=== PATIENT | female | born 1950 | race Caucasian/White ===

== ENCOUNTER → 2022-09-01 13:52 | Outpatient (CLI) | payer MEDICARE, OTHER, SELFPAY ==
[2022-09-01 14:52] LABS: Cholesterol 315 mg/dL (140-199); HDL Cholesterol 109 mg/dL (40-60); LDL Cholesterol Calculated 184 mg/dL (<100); Triglycerides 108 mg/dL (35-150)
== END ==
PROVIDERS: PCP Family Medicine; Referring Provider Family Medicine; Visit Provider Family Medicine
DX: Z76.89 Persons encountering health services in other specified circumstances (principal); Z12.11 Encounter for screening for malignant neoplasm of colon; Z13.220 Encounter for screening for lipoid disorders; E66.3 Overweight; E78.00 Pure hypercholesterolemia, unspecified
CPT/HCPCS: 36415; 80061

== ENCOUNTER → 2023-07-16 09:45 | Outpatient (CLI) | payer MEDICARE, OTHER, SELFPAY ==
[2023-07-19 09:22] LABS: Fecal Immunochemical Test Negative (Negative)
== END ==
PROVIDERS: PCP Family Medicine; Referring Provider Family Medicine; Visit Provider Family Medicine
DX: Z12.11 Encounter for screening for malignant neoplasm of colon (principal); Z76.89 Persons encountering health services in other specified circumstances
CPT/HCPCS: 82274

== ENCOUNTER 2025-07-12 10:50 | Emergency (ER) | payer MEDICARE, OTHER, SELFPAY ==
[2025-07-12] VITALS (38 sets, daily range): BP systolic 133–194; BP diastolic 67–99; PULSE 80–109; RESP 10–30; TEMP 37.2; O2SAT 98–100; BMI 27.3
--- NOTE | 2025-07-12 11:09 | EKG_ITS ---
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
--- NOTE | 2025-07-12 11:24 | DI.RAD.S_ITS ---
PROCEDURE: XR CHEST 1V INDICATIONS: altered mental status TECHNIQUE: One view of the chest was acquired. COMPARISON: None. FINDINGS: Surgical changes and devices: None. Lungs and pleura: Lungs are clear. No pleural effusions or pneumothorax. Mediastinum: Mediastinal contours appear normal. Heart size is normal. Bones and chest wall: No suspicious bony lesions. Overlying soft tissues appear unremarkable. IMPRESSION: No acute pulmonary process. Dictated by: Dena Fink M.D. on 07/12/2025 at 12:19 Approved by: Dena Fink M.D. on 07/12/2025 at 12:19
[2025-07-12 11:48] LABS: Add Manual Diff / Slide Review NO; Hematocrit 42.6 % (36-46); Hemoglobin 14.4 g/dL (12.0-16.0); Lymphocytes Absolute Auto 500 /uL (1100-4500); Mean Corpuscular HGB Conc 33.9 % (30-36); Mean Corpuscular Hemoglobin 36.3 PG (26-34); Mean Corpuscular Volume 107.1 fL (80-100); Platelet Count 120 X10^3/uL (150-400)
[2025-07-12 11:59] LABS: Lactate (Lactic Acid) 2.0 mmol/L (0.7-2.1)
[2025-07-12 12:00] LABS: Alanine Aminotransferase 111 IU/L (<35); Albumin 4.6 g/dL (3.5-5.0); Albumin Globulin Ratio 1.4 (1.0-2.8); Alkaline Phosphatase 104 U/L (38-126); Blood Urea Nitrogen 10 mg/dL (7-17); Calcium 9.2 mg/dL (8.4-10.2); Carbon Dioxide 28 mmol/L (22-32); Chloride 97 mmol/L (98-107); Creatine Kinase 69 U/L (30-135); Estimated Glomerular Filt Rate > 60 mL/min (>60); Ethanol (ETOH) < 10 mg/dL (<10); Globulin 3.3 g/dL (1.7-4.1); Glucose 107 mg/dL (70-99); HEMOLYSIS 21 (0-50); Potassium 3.8 mmol/L (3.4-5.1); Sodium 137 mmol/L (137-145); Total Protein 7.9 g/dL (6.3-8.2)
--- NOTE | 2025-07-12 12:06 | ED_ITS ---
HPI - Alcohol General Chief Complaint: Toxicology Problem Stated Complaint: Shaky, Headache , Off balance this morning Time Seen by Provider: 07/12/25 10:59 Source: patient and family Mode of arrival: Family Vehicle History of Present Illness HPI narrative: Patient is a 74-year-old female history of anxiety and alcohol use, brought in today by grandson for balance issues. He reports that she typically drives gets around easily has had ongoing memory problems but typically does not have any balance problems. Today he noticed that she was very off balance. No trauma. She is having pretty significant headache this morning she took 2 Tylenol for it. She does admit to drinking alcohol last night but that is not new for her she does not feel like she is hung over. No nausea no vomiting. No chest pain no abdominal Related Data Previous Rx's ?Medication ?Instructions ?Recorded magnesium citrate 100 mg tablet 100 mg PO DAILY #90 ta bs 03/21/24 citalopram 10 mg tablet 10 mg PO DAILY #90 tabs 03/28 Allergies Allergy/AdvReac Type Severity Reaction Status Date / Time aspirin Allergy Severe Anaphylaxis Verified 07/12/25 11:15 cat dander Allergy Intermediate Difficulty Verified 07/12/25 11:15 Breathing Patient History Medical History (Updated 07/12/25 @ 15:12 by Adelita Cortez DO) Generalized anxiety disorder with panic attacks Hypercholesteremia BMI 28.0-28.9,adult Elevated blood pressure reading in office without diagnosis of hypertension Social History Smoking Status: Former smoker Tobacco: How many years used: 20 alcohol intake: current (2 drinks per day ) substance use type: does not use Smoking Status: Former smoker tobacco type: cigarettes Alcohol type: hard liquor Exam Initial Vital Signs Initial Vital Signs: Vital Signs Pulse Rate 91 H 07/12/25 11:00 Blood Pressure 194/99 H 07/12/25 11:00 Pulse Oximetry 99 07/12/25 11:00 GENERAL: Alert pleasant 74-year-old female HEENT: Head atraumatic,EOMI, pupils reactive, face symmetric, moist mucous membranes CARDIOVASCULAR: Regular rate and rhythm without murmurs, rubs or gallops. RESPIRATORY: Breath sounds equal bilaterally, no wheezes rales or rhonchi. ABDOMEN: Soft, nontender. Normoactive bowel sounds all 4 quadrants. No guarding or rebound. EXTREMITIES: Normal range of motion, no clubbing or edema. Neurovascularly intact NEUROLOGICAL: Alert and oriented x1.Normal gait and speech. Cranial nerves II through XII grossly intact. Good zkevkr-wa-xwrl, good zhnf-rx-bhos, strength equal bilaterally, no dysarthria or aphasia, sensation in tact to soft touch bilaterally, no visual changes, no facial droop SKIN: Warm, dry, no laceration, no petechiae, no rashes or lesions. Scores GCS Aline coma scale eye opening: Spontaneous [place] coma scale verbal response: Orientated Aline coma scale motor response: Obey commands Aline coma scale total score: 15 NIH Stroke Scale Level of Conciousness: Alert, keenly responsive Ask month/age: Answers one question correctly, intubated follow commands Open/close eyes, close hand: Performs both tasks correctly Best gaze horizontal: Normal Visual coronado: No visual loss Facial palsy: Normal symetrical movement Left arm drift: No drift for full 10 sec Right arm drift: No drift for full 10 sec Left leg drift: No drift for full 5 sec Right leg drift: No drift for full 5 sec Limb ataxia: Absent Sensory on face/arms/legs: Normal, no sensory loss Best language: No aphasia, normal Dysarthria: Normal Extinction or inattention: No abnormality Total NIH Stroke scale score: 1 Course Orders Ordered: ED Orders 07/12/25 11:17 Complete Blood Count AUTO DIFF Stat Comprehensive Metabolic Panel Stat Ethanol (ETOH) Stat Lactate (Lactic Acid) Stat PTT Partial Thromboplastin Chandu Stat Procalcitonin Stat Prothrombin Time INR Stat Troponin & CK Cardiac Panel Stat 07/12/25 11:24 XR chest 1V Stat EKG-12 Lead Stat 07/12/25 12:14 CT angio head and neck Stat CT head/brain wo con Stat 07/12/25 12:20 UA Complete [Urinalysis and Microscopic] Stat Urine Drug Screen, Rapid Stat Discontinued Medications Nicardipine HCl 25 mg/ Sodium (Chloride) 250 mls @ 50 mls/hr IV TITRATE KSENIA; Protocol Last Titration: 07/12/25 14:49 Dose: 0 mg/hr, 0 mls/hr Documented By: Titration: 07/12/25 14:38 Dose: 2.5 mg/hr, 25 mls/hr Documented By: Titration: 07/12/25 14:29 Dose: 5 mg/hr, 50 mls/hr Documented By: Titration: 07/12/25 14:04 Dose: 0 mg/hr, 0 mls/hr Documented By: Admin: 07/12/25 14:00 Dose: 5 mg/hr, 50 mls/hr Documented By: OTILIA Labetalol HCl (Labetalol 20 Mg/4 Ml Syringe) 5 mg IV NOW ONE Stop: 07/12/25 13:19 Last Admin: 07/12/25 13:26 Dose: 5 mg Documented By: REED Vital Signs Vital signs: Vital Signs - 8 hr 07/12/25 11:00 07/12/25 11:00 07/12/25 11:15 Temperature 98.9 F Pulse Rate 91 H 92 H Respiratory Rate 22 Blood Pressure 194/99 H 194/99 H Pulse Oximetry 99 98 Oxygen Delivery Method Room Air 07/12/25 11:20 07/12/25 11:20 07/12/25 11:30 Temperature Pulse Rate 88 86 Respiratory Rate 16 25 H Blood Pressure 178/91 H Pulse Oximetry 99 98 Oxygen Delivery Method 07/12/25 11:30 07/12/25 11:40 07/12/25 11:40 Temperature Pulse Rate 82 Respiratory Rate 18 Blood Pressure 174/87 H 163/81 H Pulse Oximetry 99 Oxygen Delivery Method 07/12/25 11:50 07/12/25 11:50 07/12/25 12:00 Temperature Pulse Rate 82 83 Respiratory Rate 13 18 Blood Pressure 161/78 H Pulse Oximetry 99 98 Oxygen Delivery Method 07/12/25 12:00 07/12/25 12:11 07/12/25 12:11 Temperature Pulse Rate 109 H Respiratory Rate 30 H Blood Pressure 160/78 H 183/91 H Pulse Oximetry 98 Oxygen Delivery Method 07/12/25 12:38 07/12/25 12:38 07/12/25 12:41 Temperature Pulse Rate 90 Respiratory Rate 19 Blood Pressure 191/85 H 191/79 H Pulse Oximetry 99 Oxygen Delivery Method 07/12/25 12:41 07/12/25 12:50 07/12/25 12:50 Temperature Pulse Rate 88 86 Respiratory Rate 11 L 13 Blood Pressure 181/78 H Pulse Oximetry 100 100 Oxygen Delivery Method 07/12/25 13:00 07/12/25 13:00 07/12/25 13:10 Temperature Pulse Rate 84 85 Respiratory Rate 15 14 Blood Pressure 168/77 H Pulse Oximetry 100 100 Oxygen Delivery Method 07/12/25 13:10 07/12/25 13:20 07/12/25 13:20 Temperature Pulse Rate 93 H Respiratory Rate 22 Blood Pressure 162/75 H 181/89 H Pulse Oximetry 100 Oxygen Delivery Method 07/12/25 13:26 07/12/25 13:30 07/12/25 13:30 Temperature Pulse Rate 91 H 90 Respiratory Rate 24 Blood Pressure 181/89 H 184/82 H Pulse Oximetry 100 Oxygen Delivery Method 07/12/25 13:31 07/12/25 13:31 07/12/25 13:41 Temperature Pulse Rate 90 84 Respiratory Rate 20 25 H Blood Pressure 187/84 H Pulse Oximetry 100 100 Oxygen Delivery Method 07/12/25 13:41 07/12/25 13:45 07/12/25 13:45 Temperature Pulse Rate 84 Respiratory Rate 23 Blood Pressure 190/76 H 183/81 H Pulse Oximetry 100 Oxygen Delivery Method 07/12/25 13:50 07/12/25 13:50 07/12/25 14:00 Temperature Pulse Rate 83 83 Respiratory Rate 13 12 Blood Pressure 182/82 H Pulse Oximetry 100 100 Oxygen Delivery Method 07/12/25 14:00 07/12/25 14:10 07/12/25 14:10 Temperature Pulse Rate 84 Respiratory Rate 11 L Blood Pressure 167/81 H 171/83 H Pulse Oximetry 100 Oxygen Delivery Method 07/12/25 14:21 07/12/25 14:21 07/12/25 14:30 Temperature Pulse Rate 86 89 Respiratory Rate 18 12 Blood Pressure 178/79 H Pulse Oximetry 100 100 Oxygen Delivery Method 07/12/25 14:30 07/12/25 14:35 07/12/25 14:35 Temperature Pulse Rate 89 Respiratory Rate 10 L Blood Pressure 160/74 H 146/73 H Pulse Oximetry 100 Oxygen Delivery Method 07/12/25 14:40 07/12/25 14:40 07/12/25 14:45 Temperature Pulse Rate 91 H 90 Respiratory Rate 11 L Blood Pressure 147/71 H Pulse Oximetry 100 100 Oxygen Delivery Method 07/12/25 14:45 07/12/25 14:50 07/12/25 14:50 Temperature Pulse Rate 85 Respiratory Rate 12 Blood Pressure 137/70 133/67 Pulse Oximetry 100 Oxygen Delivery Method 07/12/25 14:55 07/12/25 14:55 07/12/25 15:00 Temperature Pulse Rate 84 80 Respiratory Rate 10 L 11 L Blood Pressure 153/72 H Pulse Oximetry 100 100 Oxygen Delivery Method 07/12/25 15:00 07/12/25 15:05 07/12/25 15:05 Temperature Pulse Rate 82 Respiratory Rate 11 L Blood Pressure 144/71 H 144/71 H Pulse Oximetry 100 Oxygen Delivery Method 07/12/25 15:10 07/12/25 15:10 07/12/25 15:18 Temperature Pulse Rate 81 Respiratory Rate 12 Blood Pressure 153/75 H 156/73 H Pulse Oximetry 100 Oxygen Delivery Method 07/12/25 15:18 07/12/25 15:20 07/12/25 15:20 Temperature Pulse Rate 89 85 Respiratory Rate 21 12 Blood Pressure 157/74 H Pulse Oximetry 100 100 Oxygen Delivery Method 07/12/25 15:25 07/12/25 15:25 07/12/25 15:30 Temperature Pulse Rate 84 85 Respiratory Rate 13 15 Blood Pressure 159/77 H Pulse Oximetry 100 100 Oxygen Delivery Method 07/12/25 15:30 07/12/25 15:35 07/12/25 15:35 Temperature Pulse Rate 86 Respiratory Rate 16 Blood Pressure 162/79 H 162/79 H Pulse Oximetry 100 Oxygen Delivery Method 07/12/25 15:40 07/12/25 15:40 Temperature Pulse Rate 85 Respiratory Rate 11 L Blood Pressure 156/78 H Pulse Oximetry 100 Oxygen Delivery Method MDM - Alcohol Lab Data 07/12/25 11:17 07/12/25 11:17 Labs: Lab Results 07/12/25 07/12/25 07/12/25 Range/Units 10:59 11:17 12:20 WBC 3.7 L (4.5-11.0) X10^3/uL RBC 3.98 L (4.0-5.2) X10^6/uL Hgb 14.4 (12.0-16.0) g/dL Hct 42.6 (36-46) % MCV 107.1 H (80-100) fL MCH 36.3 H (26-34) PG MCHC 33.9 (30-36) % RDW 15.2 H (11.6-14.8) % Plt Count 120 L (150-400) X10^3/uL Neut % (Auto) 77.1 H (50-75) % Lymph % (Auto) 13.6 L (25-40) % Patrick % (Auto) 7.9 (3-14) % Eos % (Auto) 0.8 L (2-4) % Baso % (Auto) 0.6 (0-2) % Neut # (Auto) 2800 (5993-8997) /uL Lymph # (Auto) 500 L (7108-6179) /uL Patrick # (Auto) 300 (0-900) /uL Eos # (Auto) 0 (0-450) /uL Baso # (Auto) 0 (0-100) /uL PT 12.4 (9.4-12.5) SECONDS INR 1.1 (0.9-1.3) APTT 28 (25.1-36.5) SECONDS Sodium 137 (137-145) mmol/L Potassium 3.8 (3.4-5.1) mmol/L Chloride 97 L (98-107) mmol/L Carbon Dioxide 28 (22-32) mmol/L BUN 10 (7-17) mg/dL Creatinine 0.52 (0.52-1.04) mg/dL Estimated GFR > 60 (>60) mL/min BUN/Creatinine Ratio 19.2 (6-22) Glucose 107 H (70-99) mg/dL POC Whole Bld Glucose 96 (70-99) mg/dL Lactate 2.0 (0.7-2.1) mmol/L Calcium 9.2 (8.4-10.2) mg/dL Total Bilirubin 2.3 H (0.2-1.3) mg/dL AST 210 H (14-36) IU/L ALT 111 H (<35) IU/L Alkaline Phosphatase 104 (38-126) U/L Total Creatine Kinase 69 (30-135) U/L Troponin I < 0.012 (0.01-0.034) ng/mL Total Protein 7.9 (6.3-8.2) g/dL Albumin 4.6 (3.5-5.0) g/dL Globulin 3.3 (1.7-4.1) g/dL Albumin/Globulin Ratio 1.4 (1.0-2.8) Procalcitonin 0.090 (<0.5) ng/mL Urine Color Yellow Urine Appearance Clear Urine pH 7.5 (4.5-8.0) Ur Specific [place] 1.015 (1.000-1.035) Urine Protein Negative (Negative) Urine Glucose (UA) Negative (Negative) g/dL Urine Ketones 1+ H (NEGATIVE) Urine Occult Blood Negative (Negative) Urine Nitrate Negative (Negative) Urine Bilirubin Negative (NEGATIVE) Urine Urobilinogen 2.0 H (0.2) E.U./dL Ur Leukocyte Esterase Trace H (NEGATIVE) Urine RBC 0-1/hpf (0-5/HPF) Urine WBC 1-5/hpf (0-5/HPF) Ur Squamous Epith Cells 0-1 /hpf (0-5/HPF) Urine Bacteria Occasional (0-1) (None) Ur Culture Indicated? Cult not indicated Vol Urine Centrifuged 10ml (spun) U Opiates 300ng/mL cut Negative (Negative) Ur Oxycodone Screen Negative (Negative) Urine Methadone Screen Negative (Negative) Ur Barbiturates Screen Negative (Negative) U Tricyclic Antidepress Negative (Negative) Ur Phencyclidine Scrn Negative (Negative) Ur Amphetamines Screen Negative (Negative) U Methamphetamines Scrn Negative (Negative) Ur MDMA Scrn (Ecstasy) Negative (Negative) U Benzodiazepines Scrn Negative (Negative) Urine Cocaine Screen Negative (Negative) U Marijuana (THC) Screen Negative (Negative) Urine Specific [place] (Normal) Ethyl Alcohol < 10 (<10) mg/dL Ur Creatinine (Normal) 07/12/25 Range/Units 12:20 WBC (4.5-11.0) X10^3/uL RBC (4.0-5.2) X10^6/uL Hgb (12.0-16.0) g/dL Hct (36-46) % MCV (80-100) fL MCH (26-34) PG MCHC (30-36) % RDW (11.6-14.8) % Plt Count (150-400) X10^3/uL Neut % (Auto) (50-75) % Lymph % (Auto) (25-40) % Patrick % (Auto) (3-14) % Eos % (Auto) (2-4) % Baso % (Auto) (0-2) % Neut # (Auto) (7211-3122) /uL Lymph # (Auto) (1281-1319) /uL Patrick # (Auto) (0-900) /uL Eos # (Auto) (0-450) /uL Baso # (Auto) (0-100) /uL PT (9.4-12.5) SECONDS INR (0.9-1.3) APTT (25.1-36.5) SECONDS Sodium (137-145) mmol/L Potassium (3.4-5.1) mmol/L Chloride (98-107) mmol/L Carbon Dioxide (22-32) mmol/L BUN (7-17) mg/dL Creatinine (0.52-1.04) mg/dL Estimated GFR (>60) mL/min BUN/Creatinine Ratio (6-22) Glucose (70-99) mg/dL POC Whole Bld Glucose (70-99) mg/dL Lactate (0.7-2.1) mmol/L Calcium (8.4-10.2) mg/dL Total Bilirubin (0.2-1.3) mg/dL AST (14-36) IU/L ALT (<35) IU/L Alkaline Phosphatase (38-126) U/L Total Creatine Kinase (30-135) U/L Troponin I (0.01-0.034) ng/mL Total Protein (6.3-8.2) g/dL Albumin (3.5-5.0) g/dL Globulin (1.7-4.1) g/dL Albumin/Globulin Ratio (1.0-2.8) Procalcitonin (<0.5) ng/mL Urine Color Urine Appearance Urine pH Normal (4.5-8.0) Ur Specific Toyah (1.000-1.035) Urine Protein (Negative) Urine Glucose (UA) (Negative) g/dL Urine Ketones (NEGATIVE) Urine Occult Blood (Negative) Urine Nitrate (Negative) Urine Bilirubin (NEGATIVE) Urine Urobilinogen (0.2) E.U./dL Ur Leukocyte Esterase (NEGATIVE) Urine RBC (0-5/HPF) Urine WBC (0-5/HPF) Ur Squamous Epith Cells (0-5/HPF) Urine Bacteria (None) Ur Culture Indicated? Vol Urine Centrifuged U Opiates 300ng/mL cut (Negative) Ur Oxycodone Screen (Negative) Urine Methadone Screen (Negative) Ur Barbiturates Screen (Negative) U Tricyclic Antidepress (Negative) Ur Phencyclidine Scrn (Negative) Ur Amphetamines Screen (Negative) U Methamphetamines Scrn (Negative) Ur MDMA Scrn (Ecstasy) (Negative) U Benzodiazepines Scrn (Negative) Urine Cocaine Screen (Negative) U Marijuana (THC) Screen (Negative) Urine Specific Toyah Normal (Normal) Ethyl Alcohol (<10) mg/dL Ur Creatinine Normal (Normal) Point of Care Testing Glucose POC [address] scan - head: Radiologist's Impressoin: PROCEDURE: CT HEAD/BRAIN WO CON INDICATIONS: balance issue TECHNIQUE: Noncontrast 4.5 mm thick angled axial sections acquired from the foramen magnum to the vertex, with coronal and sagittal reformats. For radiation dose reduction, the following was used: automated exposure control, adjustment of mA and/or kV according to patient size. COMPARISON: [facility], CT, CT ANGIO HEAD AND NECK, 07/12/2025, 12:35. FINDINGS: CSF spaces: Basal cisterns are patent. No extra-axial fluid collections. Ventricles are normal in size and shape. Brain: 1.9 x 2.1 cm right occipital intracranial hemorrhage with minimal surrounding edema. No midline shift. Underlying atrophy chronic ischemic change. Skull and face: Calvarium and visualized facial bones are intact, without suspicious lesions. Sinuses: Visualized sinuses and mastoids are clear. IMPRESSION: Right occipital intracranial hematoma, 2.1 cm. Surrounding edema without significant mass effect or midline shift. Note: Critical results were discussed with Dr. Cortez at 11:57 AM [place] time on 07/12/25 Approved by: Luis Alberto Hester M.D. on 07/12/2025 at 11:58 CTA - brain/neck: Radiologist's Impressoin: PROCEDURE: CT ANGIO HEAD AND NECK INDICATIONS: balance issue TECHNIQUE: After the administration of intravenous contrast, 1 mm thick sections acquired from the aortic arch through the [place] of [place]. 3-dimensional ovwozyq-anqwwzxin-ozpglgmdif (MIP) and/or volume rendering reformats were acquired of the central intracranial vasculature and neck separately. For radiation dose reduction, the following was used: automated exposure control, adjustment of mA and/or kV according to patient size. COMPARISON: None. FINDINGS: Image quality: Diagnostic. Cerebral CT Angiogram: Internal carotid arteries: No acute findings. Intracranial ICA are patent with no significant stenosis. No occlusion. No aneurysm. Anterior cerebral arteries: Unremarkable. No significant stenosis. No occlusion. No aneurysm. Middle cerebral arteries: Unremarkable. No significant stenosis. No occlusion. No aneurysm. 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 The P2 segment is supplied by a widely patent posterior communicating artery. Remainder of the distal vasculature unremarkable. Basilar artery: Terminates in the superior cerebellar arteries, an anatomic variant Vertebral arteries: Unremarkable as visualized. Dural venous sinuses: Unremarkable given phase of enhancement. Other: Right occipital hematoma Neck CT Angiogram: Internal carotid arteries: Mild atherosclerotic plaque. No significant stenosis. No dissection or occlusion. Common carotid arteries: Unremarkable. No significant stenosis. No dissection or occlusion. External carotid arteries: Unremarkable. No occlusion. Vertebral arteries: Unremarkable. No significant stenosis. No dissection or occlusion. Aortic Arch and Mediastinum: Partially visualized aortic arch unremarkable without evidence of aneurysm. Origins of the great vessels unremarkable. Other: Arterial phase soft tissues of the neck and chest are unremarkable. IMPRESSION: Unremarkable CT angiogram of the head and neck without evidence of significant stenosis, large vessel occlusion or aneurysm. Right occipital hematoma without evidence of active bleeding. Approved by: Luis Alberto Hester M.D. on 07/12/2025 at 12:04 Chest x-ray: Radiologist's Impressoin: PROCEDURE: XR CHEST 1V INDICATIONS: altered mental status TECHNIQUE: One view of the chest was acquired. COMPARISON: None. FINDINGS: Surgical changes and devices: None. Lungs and pleura: Lungs are clear. No pleural effusions or pneumothorax. Mediastinum: Mediastinal contours appear normal. Heart size is normal. Bones and chest wall: No suspicious bony lesions. Overlying soft tissues appear unremarkable. IMPRESSION: No acute pulmonary process. Dictated by: Dena Fink M.D. on 07/12/2025 at 12:19 ECG Data Attestation: I personally reviewed and interpreted this ECG as follows: Prior ECG tracings: available for review Interpretation: Sinus rhythm rate 91 MI interval 146 QRS [address] changes MDM Narrative Medical decision making narrative: MDM CC: Off balance Complicating co-morbidities: Memory decline alcohol use Data collected from: Patient and grandson Medical records reviewed: PCP note from 03/29/2025 talks about citalopram use for anxiety on progesterone which is helping her sleep and mood but still having worsening memory problems Differential considered: Intracranial hemorrhage, CVA, electrolyte abnormality, alcohol withdrawal, alcohol intoxication Exam documented above, pertinent findings include: Alert pleasantly confused 74-year-old female. She has a NIH of 2 secondary to not knowing year/month and age Lab Test results independently reviewed as above. Pertinent findings: CBC mild leukopenia WBC is 3.7 no anemia platelets are 120 CMP no significant electrolyte abnormality creatinine 0.52 glucose is 107 Bilirubin elevated 2.3 AST 210 ALT is 111 alk-phos 104--no prior labs to compare Trop negative Independently reviewed EKG as above sinus rhythm no ischemia Imaging studies independently reviewed: Noncontrast head CT shows 2.1 cm right occipital hemorrhage CT angio confirms hemorrhage but no active bleeding Consultations: 1313 DR. Hodgson, resident With stroke consulted. Agrees with labetalol for blood pressure we will consult with attending before getting back. 1415 , attending physician updated that we do not keep intracranial hemorrhage on nicardipine drips here patient will need higher level of care in his happy to accept Treatments: Labetalol, nicardipine drip Re-evaluations: Patient remains neurovascularly intact. She was given 5 mg of labetalol blood pressure actually went up nicardipine drip ordered and started blood pressure is much better controlled Discussion: Patient is 74-year-old female history of memory loss alcohol use presenting today with balance issues. She is found to have a 2.1 cm intracranial hemorrhage on the right occipital lobe. She continues to have a GCS of 15 and maintaining her own airway. She is requiring nicardipine drip for blood pressure control. She is happily accepted at [facility]. Critical Care Time Critical Care Time Critical Care Time: Yes Total Critical Care Time: 35 Attestation: The high probability of a clinically significant, sudden or life threatening deterioration of the neurovascular system(s) required my full and direct attention, intervention and personal management. The aggregate critical care time was 35 minutes. This time is in addition to time spent performing reported procedures but includes the following: [x] Data Review and interpretation [x] Patient assessment and monitoring of vital signs [x] Documentation [x] Medication orders and management Discharge Plan Departure [facility] Clinical Impression: Intracranial hemorrhage Prescriptions: No Action magnesium citrate 100 mg tablet 100 mg PO DAILY Qty: 90 1RF citalopram 10 mg tablet 10 mg PO DAILY Qty: 90 3RF Referrals: Gianna Song DO [Primary Care Provider, Medical]
[2025-07-12 12:11] LABS: Troponin I < 0.012 ng/mL (0.01-0.034)
--- NOTE | 2025-07-12 12:14 | DI.CT.S_ITS ---
PROCEDURE: CT ANGIO HEAD AND NECK INDICATIONS: balance issue TECHNIQUE: After the administration of intravenous contrast, 1 mm thick sections acquired from the aortic arch through the [place]. 3-dimensional mkqlutf-ghenqgwry-sjlfrhdknz (MIP) and/or volume rendering reformats were acquired of the central intracranial vasculature and neck separately. For radiation dose reduction, the following was used: automated exposure control, adjustment of mA and/or kV according to patient size. COMPARISON: None. FINDINGS: Image quality: Diagnostic. Cerebral CT Angiogram: Internal carotid arteries: No acute findings. Intracranial ICA are patent with no significant stenosis. No occlusion. No aneurysm. Anterior cerebral arteries: Unremarkable. No significant stenosis. No occlusion. No aneurysm. Middle cerebral arteries: Unremarkable. No significant stenosis. No occlusion. No aneurysm. 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 The P2 segment is supplied by a widely patent posterior communicating artery. Remainder of the distal vasculature unremarkable. Basilar artery: Terminates in the superior cerebellar arteries, an anatomic variant Vertebral arteries: Unremarkable as visualized. Dural venous sinuses: Unremarkable given phase of enhancement. Other: Right occipital hematoma Neck CT Angiogram: Internal carotid arteries: Mild atherosclerotic plaque. No significant stenosis. No dissection or occlusion. Common carotid arteries: Unremarkable. No significant stenosis. No dissection or occlusion. External carotid arteries: Unremarkable. No occlusion. Vertebral arteries: Unremarkable. No significant stenosis. No dissection or occlusion. Aortic Arch and Mediastinum: Partially visualized aortic arch unremarkable without evidence of aneurysm. Origins of the great vessels unremarkable. Other: Arterial phase soft tissues of the neck and chest are unremarkable. IMPRESSION: Unremarkable CT angiogram of the head and neck without evidence of significant stenosis, large vessel occlusion or aneurysm. Right occipital hematoma without evidence of active bleeding. Approved by: Luis Alberto Hester M.D. on 07/12/2025 at 12:04
--- NOTE | 2025-07-12 12:14 | DI.CT.S_ITS ---
PROCEDURE: CT HEAD/BRAIN WO CON INDICATIONS: balance issue TECHNIQUE: Noncontrast 4.5 mm thick angled axial sections acquired from the foramen magnum to the vertex, with coronal and sagittal reformats. For radiation dose reduction, the following was used: automated exposure control, adjustment of mA and/or kV according to patient size. COMPARISON: [facility], CT, CT ANGIO HEAD AND NECK, 07/12/2025, 12:35. FINDINGS: CSF spaces: Basal cisterns are patent. No extra-axial fluid collections. Ventricles are normal in size and shape. Brain: 1.9 x 2.1 cm right occipital intracranial hemorrhage with minimal surrounding edema. No midline shift. Underlying atrophy chronic ischemic change. Skull and face: Calvarium and visualized facial bones are intact, without suspicious lesions. Sinuses: Visualized sinuses and mastoids are clear. IMPRESSION: Right occipital intracranial hematoma, 2.1 cm. Surrounding edema without significant mass effect or midline shift. Note: Critical results were discussed with Dr. Cortez at 11:57 AM [place] time on 07/12/25 Approved by: Luis Alberto Hester M.D. on 07/12/2025 at 11:58
[2025-07-12 12:16] LABS: Procalcitonin 0.090 ng/mL (<0.5)
[2025-07-12 13:00] LABS: Appearance Urine UA CLEAR; Bilirubin Urine UA NEGATIVE (NEGATIVE); Color Urine UA YELLOW; Glucose Urine UA NEGATIVE (Negative); Ketones Urine UA 1+ (NEGATIVE); Leukocyte Esterase Urine UA TRACE (NEGATIVE); Nitrite Urine UA NEGATIVE (Negative); Occult Blood Urine UA NEGATIVE (Negative); Protein Urine UA NEGATIVE (Negative); Specific Gravity Urine UA 1.015 (1.000-1.035); Urobilinogen Urine UA 2.0 E.U./dL (0.2)
[2025-07-12 13:02] LABS: pH Urine UA 7.5 (4.5-8.0)
[2025-07-12 13:07] LABS: Culture Indicated Urine Cult Not Indicated; Ur Creatinine Normal (Normal); Ur Specific Gravity Normal (Normal); Urine MDMA Negative (Negative); Urine Methamphetamines Negative (Negative); Urine THC Negative (Negative); Urine pH Normal (Normal)
[2025-07-12 13:08] LABS: Urine Tricyclic Antidepressant Negative (Negative)
[2025-07-12 13:26] LABS: INR 1.1 (0.9-1.3); Prothrombin Time 12.4 SECONDS (9.4-12.5)
[2025-07-12] MEDS: LABETALOL 20 MG/4 ML SYRINGE 5 MG IV (13:26)
[2025-07-12 13:29] LABS: PTT Partial Thromboplastin Tim 28 SECONDS (25.1-36.5)
--- NOTE | 2025-07-12 13:38 | PC.NURSE ---
Pure wick placed without difficulty to low intermittent suction. светлана care done prior to placement of purewick
== END 2025-07-12 15:51 | disposition short-term general hospital (02) ==
PROVIDERS: Emergency Provider Emergency Medicine; PCP Family Medicine
DX: I62.9 Nontraumatic intracranial hemorrhage, unspecified (principal); R41.82 Altered mental status, unspecified; R29.701 NIHSS score 1
CPT/HCPCS: 36415; 70450; 70496; 70498; 71045; 80053; 80305; 80320; 81001; 82550; 82962; 83605; 84145; 84484; 85025; 85610; 85730; 93005; 96365; 96375; 99284; 99291; J7050; Q9967